=== PATIENT | female | born 1990 | race African-American/Black ===

== ENCOUNTER 2018-10-16 20:49 | Emergency (ER) | payer OTHER, SELFPAY | END 2018-10-16 21:24 | disposition home or self-care (01) | LOC: ERS 20:49 | DX: S46.912A Strain of unspecified muscle, fascia and tendon at shoulder and upper arm level, left arm, initial encounter (principal); F32.9 Major depressive disorder, single episode, unspecified; V43.52XA Car driver injured in collision with other type car in traffic accident, initial encounter | CPT/HCPCS: 99283 ==

== ENCOUNTER 2019-01-18 01:36 | Emergency (ER) | payer MEDICAID, OTHER ==
[2019-01-18] MEDS ORDERED: Ibuprofen 800 MG TAB ONE (01:52)
--- NOTE | 2019-01-18 07:41 | RAD ---
XR Chest Pa Lat STANDARD History: Cough Comparison: None. Findings: Lungs are clear. No pneumothorax or effusion. Cardiac silhouette and mediastinal contours a re within normal limits. No acute osseous abnormality. Impression: No acute intrathoracic abnormality.
== END 2019-01-18 02:38 | disposition home or self-care (01) ==
LOC: ERS 01:36
DX: J06.9 Acute upper respiratory infection, unspecified (principal); F32.9 Major depressive disorder, single episode, unspecified
CPT/HCPCS: 71046

== ENCOUNTER 2019-02-12 14:22 | Emergency (ER) | payer MEDICAID | END 2019-02-12 15:35 | disposition home or self-care (01) | LOC: ERS 14:22 | DX: S83.91XA Sprain of unspecified site of right knee, initial encounter (principal); S53.401A Unspecified sprain of right elbow, initial encounter; X58.XXXA Exposure to other specified factors, initial encounter | CPT/HCPCS: 99283 ==

== ENCOUNTER 2019-02-17 14:33 | Emergency (ER) | payer MEDICAID, OTHER ==
[2019-02-17] MEDS ORDERED: Ketorolac Tromethamine 30 MG/ML VIAL ONE (15:36)
--- NOTE | 2019-02-17 16:07 | RAD ---
EXAM: CHEST TWO VIEWS: 02/17/19 HISTORY: Chest pain, substernal chest discomfort. COMPARISON: 01/18/19. FINDINGS: Heart size is normal. The lungs are clear. No pneumonia, edema, or pleural effusion. IMPRESSION: No significant acute intrathoracic disease. POS: [facility]
[2019-02-17] MEDS ORDERED: Mag-Al 1200 mg/1200 mg/30 ML UDCUP ONE (16:29)
[2019-02-17] MEDS ORDERED: Lidocaine Viscous Sol 2% 15 ml UD Cup ONE (16:29)
== END 2019-02-17 16:30 | disposition home or self-care (01) ==
LOC: ERS 14:33
DX: R07.2 Precordial pain (principal); F41.9 Anxiety disorder, unspecified; F32.9 Major depressive disorder, single episode, unspecified
CPT/HCPCS: 71046; 93005; 94760; 96374; J1885

== ENCOUNTER 2019-05-03 14:53 | Emergency (ER) | payer OTHER ==
[2019-05-03 15:51] LABS: #Basophils 0.1 thou/uL (0.0-0.2); #Eosinphils 0.5 thou/uL (0.0-0.7); #Lymphocytes 3.5 thou/uL (1.20-3.40); #Monocytes 0.5 thou/uL (0.11-0.59); #Neutrophils 3.6 thou/uL (1.40-6.50); %Basophils 0.7 % (0.0-1.0); %Eosinophils 5.6 % (0.0-10.0); %Lymphocytes 43.5 % (21.0-51.0); %Monocytes 5.7 % (0.0-10.0); %Neutrophils 44.6 % (42.0-75.0); Mean Corpuscular HGB CONC 31.6 g/dL (32.0-36.0); Mean Corpuscular Volume 76.1 fL (78.0-98.0); Mean Platelet Volume 9.5 fL (7.4-10.4); Platelet Count 283 thou/uL (130-400); RBC Distribution Width 15.2 % (11.5-14.5); Red Blood Cell (RBC) Count 4.59 mill/uL (4.20-5.40); White Blood Cell (WBC) Count 8.1 thou/uL (4.8-10.8)
[2019-05-03 15:55] LABS: BHCG - Serum Negative (NEGATIVE); Pregs Control Background? CLEAR/WHITE (CLR/WHITE); Pregs Control Bar Appear? YES (CONTROL BAR)
[2019-05-03 16:15] LABS: ALT (SGPT) 15 U/L (8-55); AST (SGOT) 22 U/L (5-34); Albumin 4.2 g/dL (3.5-5.0); Alkaline Phosphatase 85 U/L (40-110); Anion Gap 12 mmol/L (10-20); BUN (Urea Nitrogen) 10 mg/dL (7.0-18.7); Bilirubin, Total 0.3 mg/dL (0.2-1.2); Calc. Creatinine Clearance 0 mL/min (70-130); Calcium 9.2 mg/dL (7.8-10.44); Carbon Dioxide 25 mmol/L (22-29); Chloride 106 mmol/L (98-107); Estimated GFR-MDRD 89; Globulin 3.4 g/dL (2.4-3.5); Glucose 80 mg/dL (70-105); Potassium 3.8 mmol/L (3.5-5.1); Protein, Total 7.6 g/dL (6.0-8.3); Sodium 139 mmol/L (136-145)
[2019-05-03] MEDS ORDERED: Ondansetron ODT 4 MG TAB ONE (16:46)
[2019-05-03] MEDS ORDERED: Meclizine HCl 25 MG TAB ONE (16:46)
== END 2019-05-03 17:00 | disposition home or self-care (01) ==
LOC: ERS 14:53
DX: R42 Dizziness and giddiness (principal); R11.0 Nausea; F41.9 Anxiety disorder, unspecified; F32.9 Major depressive disorder, single episode, unspecified; Z79.899 Other long term (current) drug therapy
CPT/HCPCS: 36415; 80053; 84703; 85025; 93005; J8597; Q0162

== ENCOUNTER 2019-07-21 22:04 | Emergency (ER) | payer OTHER ==
[2019-07-21 22:33] LABS: Bilirubin Negative (Negative); Blood, Urine Negative (Negative); Clarity Clear (Clear); Glucose, Urine (Dipstick) Normal (Negative); Leukocyte Negative Leu/uL (Negative); Nitrite Negative (Negative); Protein, Urine (Dipstick) Negative (Neg-Trace); Urobilinogen Normal mg/dL (Less than 2)
[2019-07-21 22:37] LABS: Pregnancy Test - Urine (BHCG) Negative (Negative); Pregu Control Background? CLEAR/WHITE (CLR/WHITE); Pregu Control Bar Appear? YES (CONTROL BAR); Specific Gravity 1.019 (1.002-1.036)
[2019-07-21] MEDS ORDERED: Ketorolac Tromethamine 30 MG/ML VIAL ONE (23:26)
== END 2019-07-21 23:45 | disposition home or self-care (01) ==
LOC: ERS 22:04
DX: R10.9 Unspecified abdominal pain (principal); M54.5 Low back pain; F32.9 Major depressive disorder, single episode, unspecified; F41.9 Anxiety disorder, unspecified
CPT/HCPCS: 81003; 81025; 96372; 99284; J1885

== ENCOUNTER 2020-11-05 11:28 | Emergency (ER) | payer OTHER | END 2020-11-05 12:32 | disposition home or self-care (01) | LOC: ERS 11:28 | DX: O99.355 Diseases of the nervous system complicating the puerperium (principal); G56.03 Carpal tunnel syndrome, bilateral upper limbs; O99.282 Endocrine, nutritional and metabolic diseases complicating pregnancy, second trimester; E03.9 Hypothyroidism, unspecified; Z87.19 Personal history of other diseases of the digestive system | CPT/HCPCS: 99283 ==

== ENCOUNTER 2023-12-15 01:26 | Emergency (ER) | payer OTHER, SELFPAY ==
[2023-12-15 01:45] LABS: #Basophils Less than 0.03 10x3/uL (0.0-0.2); %Basophils 0.2 % (0.0-1.0); %Eosinophils 3.7 % (0.0-10.0); %Lymphocytes 31.8 % (21.0-51.0); %Monocytes 11.1 % (0.0-10.0); Hematocrit 33.9 % (36.0-47.0); Hemoglobin 10.4 g/dL (12.0-16.0); Mean Corpuscular HGB CONC 30.7 g/dL (32.0-36.0); Mean Corpuscular Hemoglobin 23.2 pg (27.0-31.0); Mean Corpuscular Volume 75.5 fL (78.0-98.0); Mean Platelet Volume 10.8 fL (7.4-10.4); Platelet Count 313 10x3/uL (130-400); RBC Distribution Width 16.6 % (11.5-14.5); Red Blood Cell (RBC) Count 4.49 mill/uL (4.20-5.40)
[2023-12-15] MEDS ORDERED: Aspirin Chewable 81 MG TAB ONE (01:54)
[2023-12-15 01:58] LABS: ALT (SGPT) 17 U/L (8-55); AST (SGOT) 21 U/L (5-34); Albumin 3.6 g/dL (3.5-5.0); Alkaline Phosphatase 69 U/L (40-110); Anion Gap 13 mmol/L (10-20); BUN (Urea Nitrogen) 11 mg/dL (7.0-18.7); Bilirubin, Total 0.3 mg/dL (0.2-1.2); Calc. Creatinine Clearance 0 mL/min (70-130); Calcium 8.8 mg/dL (7.8-10.44); Carbon Dioxide 20 mmol/L (22-29); Chloride 110 mmol/L (98-107); Estimated GFR 70; Globulin 3.7 g/dL (2.4-3.5); Glucose 94 mg/dL (70-105); Potassium 3.9 mmol/L (3.5-5.1); Protein, Total 7.3 g/dL (6.0-8.3); Sodium 139 mmol/L (136-145)
[2023-12-15 02:03] LABS: Troponin I Less than 0.010 ng/mL (< 0.028)
[2023-12-15] MEDS ORDERED: Iopamidol 370 76% 100 ML VIAL ONE (10:22)
== END 2023-12-15 03:35 | disposition home or self-care (01) ==
LOC: ERS 01:26
DX: R07.2 Precordial pain (principal); R06.02 Shortness of breath
CPT/HCPCS: 36415; 36416; 71045; 71275; 80053; 84484; 85025; 85379; 93005; Q9967